=== PATIENT | male | born 1995 | race Hispanic/Latino ===

== ENCOUNTER 2023-12-31 16:25 | Emergency (ER) | payer OTHER, SELFPAY ==
[2023-12-31 16:36] VITALS: BP 144/84; PULSE 82; RESP 18; TEMP 36.6; O2SAT 98; BMI 24.3
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
[2023-12-31] MEDS: TET,DIPH,PERTUSS(ACELL),VAC/PF 0.5 ML SYRINGE IM (17:59)
[2023-12-31 18:14] VITALS: BP 140/84; PULSE 76; RESP 18; O2SAT 96
== END 2023-12-31 18:16 | disposition home or self-care (01) ==
PROVIDERS: Emergency Provider Physician Assistant Medical
DX: S83.92XA Sprain of unspecified site of left knee, initial encounter (principal); V86.56XA Driver of dirt bike or motor/cross bike injured in nontraffic accident, initial encounter; Z23 Encounter for immunization
CPT/HCPCS: 29530; 73562; 90471; 99283; 90715